=== PATIENT | female | born 1950 | race Caucasian/White ===

== ENCOUNTER 2018-12-22 11:02 | Emergency (ER) | payer OTHER ==
[~2018-12-22] VITALS: Ht 157 cm; Wt 67.0 kg
--- NOTE | 2018-12-22 11:24 | NUR ---
LENA NOTIFIED THAT THIS PT WAS IN ROOM 07.
[2018-12-22] MEDS ORDERED: NS IV 1000 ML 1,000 ML IV SCH (11:30)
[2018-12-22] MEDS ORDERED: TETRACAINE 0.5% OPHTH SOLN 4 ML BTL (SINGLE DOSE ONLY) OP ONE (11:30)
--- NOTE | 2018-12-22 11:46 | ED EENT ---
History of Present Illness General Chief Complaint: Eye Problems Stated Complaint: CHEMICAL BURN LEFT EYE Nursing Triage Note: STATES AT APPX 9AM SHE WAS WASHING DISHES AT [employer] WHEN THE DISHWASHING SOAP WHICH IS A CHEMICAL WENT INTO HER LEFT EYE. 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 She rep orts burning sensation and slightly blurred vision in the left eye. History of cataract surgery both eyes by Dr. Garcia Timing/Duration: abrupt Severity: moderate Location: eye (L) Associated Symptoms: denies symptoms Allergies and Home Medications Allergies Coded Allergies: morphine (Verified Adverse Reaction, Unknown, N/V HEADACHE, 12/22/18) Home Medications Gentamicin Sulfate 3.5 Gm Oint...g., 1 GM OP TID 1/2 inch left lower eyelid 3x daily for 3 days Prescribed by: LENA WONG on 12/22/18 1226 Patient Home Medication List Home Medication List Reviewed: Yes Review of Systems Review of Systems Constitutional: see HPI Eyes: See HPI Ears: No Symptoms Reported Nose: no symptoms reported Mouth: no symptoms reported Throat: no symptoms reported Respiratory: no symptoms reported Cardiovascular: no symptoms reported Musculoskeletal: no symptoms reported Past Rlkkcmq-Ofyhyi-Fbeual Hx Patient Social History Recent Foreign Travel: No Contact w/Someone Who Travel: No Recent Infectious Disease Expo: No Recent Hopitalizations: No Past Medical History Surgeries: Yes Hysterectomy Respiratory: No Cardiac: No Neurological: No Genitourinary: No Gastrointestinal: No Musculoskeletal: No Endocrine: No HEENT: No Cancer: No Psychosocial: No Integumentary: No Physical Exam Vital Signs Vital Signs - First Documented 12/22/18 11:20 Temp 37.0 Pulse 67 Resp 16 B/P (MAP) 147/77 (100) Pulse Ox 97 O2 Delivery Room Air Height, Weight, BMI Height: '" Weight: lbs. oz. kg; 27.00 BMI Method: General Appearance: WD/WN, no apparent distress Eyes: left eye other (mild scleral injection and conjunctivitis); bilateral eye PERRL, bilateral eye EOMI Ears: bilateral ear auricle normal, bilateral ear canal normal, bilateral ear TM normal Neck: non-tender, full range of motion Respiratory: no respiratory distress, no accessory muscle use Neurologic/Psychiatric: alert, normal mood/affect, oriented x 3 Skin: normal color Progress/Results/Core Measures Results/Orders My Orders Orders - LENA WONG APRN Tetracaine 0.5% Ophth Sharee Sdv (Tetracai (12/22/18 11:30) Ns Iv 1000 Ml (Sodium Chloride 0.9%) (12/22/18 11:30) Fluorescein Strips (Elxyd-W-Xvdraf) (12/22/18 12:13) Fluorescein Strips (Ijxci-V-Dbwtfo) (12/22/18 12:45) Medications Given in ED Vital Signs/I&O Blood Pressure Mean: 100 Departure Communication (Admissions) Tetracaine was instilled into the eye or topical anesthesia, Giovani lens was then inserted and attached to a warm bag of normal saline for irrigation totaling 1 L. 1218- Fluorescein staining reveals an area of dye uptake at about the 8:00 position left eye at the limbus. I offered to get her follow-up with Dr. Turk, she states she would prefer to see Dr. Garcia since she is established with him. I did speak with Dr Turk, they'll be contacting Nisha for appointment. Impression Primary Impression: Corneal abrasion Qualified Codes: S05.02XA - Injury of conjunctiva and corneal abrasion without foreign body, left eye, initial encounter Additional Impression: Chemical conjunctivitis of left eye Disposition: 01 HOME, SELF-CARE Condition: Stable Departure-Patient Inst. Decision time for Depature: 12:19 Referrals: MAYNOR TURK OD NO,LOCAL PHYSICIAN (PCP) Primary Care Physician Patient Instructions: Chemical Eye Injury (DC) Add. Discharge Instructions: 1. Return to ER for any concerns 2. Follow-up with your eye doctor. All discharge instructions reviewed with patient and/or family. Voiced understanding. Scripts Gentamicin Sulfate (Gentamicin Sulfate) 3.5 Gm Oint...g. 1 GM OP TID for 3 Days, #1 TUBE 1/2 inch left lower eyelid 3x daily for 3 days Prov: LENA WONG APRN 12/22/18 LENA WONG APRN Dec 22, 2018 11:46
--- NOTE | 2018-12-22 12:01 | NUR ---
EYE CONTINUES TO BE FLUSHED. FRESH TOWELS GIVEN.
[2018-12-22] MEDS ORDERED: FLUORESCEIN (FLUOR-I-STRIPS) 1 MG STRP ONE (12:13)
[2018-12-22] MEDS ORDERED: GENT3.5O6 OP (12:26)
[2018-12-22 12:41] VITALS: BP 147/77
[2018-12-22] MEDS ORDERED: FLUORESCEIN (FLUOR-I-STRIPS) 1 MG STRP OU ONE (12:45)
--- NOTE | 2018-12-22 12:47 | NUR ---
LEFT EYE 20/40 RIGHT EYE 20/50
== END 2018-12-22 12:41 | disposition home or self-care (01) ==
LOC: ER 11:05
DX: S05.02XA Injury of conjunctiva and corneal abrasion without foreign body, left eye, initial encounter (principal); T54.91XA Toxic effect of unspecified corrosive substance, accidental (unintentional), initial encounter; H10.212 Acute toxic conjunctivitis, left eye; Z90.710 Acquired absence of both cervix and uterus; Z88.5 Allergy status to narcotic agent; Y93.G1 Activity, food preparation and clean up; Y92.219 Unspecified school as the place of occurrence of the external cause
CPT/HCPCS: 99281